=== PATIENT | female | born 1970 | race Hispanic/Latino ===

== ENCOUNTER 2020-10-29 16:24 | Emergency (ER) | payer OTHER ==
[2020-10-29] MEDS ORDERED: LIDOCAINE VISCOUS 2% SOLN 15 ML UDC ONE (18:05)
[2020-10-29] MEDS ORDERED: HYDROCOD 2.5mg-ACETAMIN 108mg/5mL Soln ONE (18:05)
--- NOTE | 2020-10-29 18:06 | ER ---
Nurse's Notes [facility] Name: Myra Craig Age: 49 yrs Sex: Female : 1970 Arrival Date: 10/29/2020 Time: 16:28 Bed 23 Private MD: Diagnosis: Stomatitis and related lesions Presentation: 10/29 16:31 Chief complaint: Sister reports that pt went to see her PCP yesterday for mouth pain sv and dx with thrush, they prescribed her Nystatin, Alendronate, and Amoxicillin. Sister reports she has been having increasing pain and mouth problems. Coronavirus screen: Client denies travel out of the [place] in the last 14 days. At this time, the client does not indicate any symptoms associated with coronavirus-19. Ebola Screen: No symptoms or risks identified at this time. Onset: The symptoms/episode began/occurred 3 day(s) ago. Anaphylaxis evaluation, no signs or symptoms of anaphylaxis were noted. Risk Assessment: Do you want to hurt yourself or someone else? Patient reports no desire to harm self or others. Onset of symptoms was October 26, 2020. 16:31 Method Of Arrival: Ambulatory sv 16:31 Acuity: MER 4 sv 16:34 Initial Sepsis Screen: Does the patient meet any 2 criteria? No. Patient's initial sv sepsis screen is negative. Does the patient have a suspected source of infection? No. Patient's initial sepsis screen is negative. Triage Assessment: 16:31 General: Appears in no apparent distress. uncomfortable, Behavior is cooperative. Pain: sv Complains of pain in mouth. Neuro: Level of Consciousness is awake, alert, obeys commands, Gait is steady. Respiratory: Airway is patent Respiratory effort is even, unlabored. Historical: - Allergies: 16:34 No Known Allergies; sv - PMHx: 16:34 Autism; CML; MR; sv - Immunization history:: Adult Immunizations up to date. - Social history:: Smoking status: Patient denies any tobacco usage or history of. Screenin:17 Abuse screen: Denies threats or abuse. Denies injuries from another. Nutritional hb screening: No deficits noted. Tuberculosis screening: No symptoms or risk factors identified. Fall Risk None identified. Assessment: 17:49 General: Appears in no apparent distress. uncomfortable, Behavior is cooperative, hb anxious. Pain: Pain currently is 6 out of 10 on a pain scale. Neuro: Level of Consciousness is awake, alert, obeys commands. Cardiovascular: Patient's skin is warm and dry. Respiratory: Respiratory effort is even, unlabored, Respiratory pattern is regular, symmetrical. GI: No signs and/or symptoms were reported involving the gastrointestinal system. : No signs and/or symptoms were reported regarding the genitourinary system. EENT: Reports pain since mouth, throat, lips. Derm: Skin is pink, warm \T\ dry. Musculoskeletal: No signs and/or symptoms reported regarding the musculoskeletal system. Vital Signs: 16:34 BP 139 / 78; Pulse 81; Resp 16; Temp 98.1; Pulse Ox 99% ; Weight 74.84 kg; Height 5 ft. sv 4 in. (162.56 cm); 16:34 Body Mass Index 28.32 (74.84 kg, 162.56 cm) sv ED Course: 16:28 Patient arrived in ED. mr 16:33 Triage completed. sv 16:34 Arm band placed on. sv 17:06 Woodrow Reaves PA is PHCP. cp 17:06 Clarke Martin MD is Attending Physician. cp 17:16 Romi Cason, PARDEEP is Primary Nurse. hb 17:50 Patient has correct armband on for positive identification. Bed in low position. Call hb light in reach. 18:25 No provider procedures requiring assistance completed. Patient did not have IV access hb during this emergency room visit. Administered Medications: 17:49 Drug: Lortab Liquid 10 ml Route: PO; hb 17:49 Drug: Viscous Lidocaine Liquid (4 %) 5 ml Route: Mucous Membrane; hb Outcome: 18:06 Discharge ordered by MD. cp 18:25 Discharged to home ambulatory, with family. hb 18:25 Condition: stable 18:25 Discharge instructions given to patient, family, Instructed on discharge instructions, follow up and referral plans. medication usage, Demonstrated understanding of instructions, follow-up care, medications, Prescriptions given X 1. 18:25 Patient left the ED. hb Signatures: Rupinder Cotton RN RN Ade Bowles mr Woodrow Reaves PA PA cp Romi Cason RN RN hb
--- NOTE | 2020-10-29 18:06 | EDPHYS ---
Physician Documentation [facility] Name: Myra Craig Age: 49 yrs Sex: Female : 1970 Arrival Date: 10/29/2020 Time: 16:28 Bed 23 Private MD: ED Physician Clarke Martin HPI: 10/29 17:35 This 49 yrs old Female presents to ER via Ambulatory with complaints of cp Possible Allergic Reaction. 17:35 The patient presents with pain. The problem is located in the lower lip and upper lip cp and mouth. Onset: The symptoms/episode began/occurred 3 day(s) ago. Duration: The symptoms are continuous, worse today. 17:35 Associated signs and symptoms: Pertinent negatives: dysphagia, fever, inability to eat. cp The patient has been recently seen by a physician: the patient's primary care provider, yesterday, with similar presenting complaints, prescribed Amoxicillin antibiotic, liquid nystatin for concern of oral thrush and Alendronate. Historical: - Allergies: 16:34 No Known Allergies; sv - PMHx: 16:34 Autism; CML; MR; sv - Immunization history:: Adult Immunizations up to date. - Social history:: Smoking status: Patient denies any tobacco usage or history of. ROS: 17:40 Constitutional: Positive for poor PO intake, Negative for body aches, chills, fever. cp 17:40 Eyes: Negative for injury, pain, redness, and discharge. cp 17:40 ENT: Positive for pain of lips and oral mucosa, Negative for ear pain, difficulty swallowing, difficulty handling secretions. 17:40 Respiratory: Negative for cough, shortness of breath, wheezing. 17:40 All other systems are negative. Exam: 17:45 Constitutional: The patient appears in no acute distress, alert, awake, non-toxic, well cp developed, well nourished, uncomfortable. 17:45 Head/Face: Normocephalic, atraumatic. cp 17:45 Eyes: Periorbital structures: appear normal, Conjunctiva: normal, no exudate, no injection, Sclera: no appreciated abnormality, Lids and lashes: appear normal, bilaterally. 17:45 ENT: External ear(s): are unremarkable, Ear canal(s): are normal, clear, TM's: dullness, bilaterally, Nose: is normal, Mouth: Lips: dry, cracked, mild swelling, Oral mucosa: moist, noted to have obvious stomatitis, on the upper lip and lower lip, Posterior pharynx: Airway: no evidence of obstruction, patent, Tonsils: no enlargement, no exudate, Uvula: midline, erythema, that is mild, exudate, is not appreciated. 17:45 Neck: ROM/movement: is normal, is supple, without pain, no range of motions limitations, Lymph nodes: no appreciated lymphadenopathy. 17:45 Chest/axilla: Inspection: normal. 17:45 Cardiovascular: Rate: normal. 17:45 Respiratory: the patient does not display signs of respiratory distress, Respirations: normal, no use of accessory muscles. Vital Signs: 16:34 BP 139 / 78; Pulse 81; Resp 16; Temp 98.1; Pulse Ox 99% ; Weight 74.84 kg; Height 5 ft. sv 4 in. (162.56 cm); 16:34 Body Mass Index 28.32 (74.84 kg, 162.56 cm) sv MDM: 17:20 Patient medically screened. cp 17:45 Differential diagnosis: dental caries, gingivitis, aphthous ulcers, gingivostomatitis. cp 18:05 Data reviewed: vital signs, nurses notes. cp 18:05 Counseling: I had a detailed discussion with the patient and/or guardian regarding: the cp historical points, exam findings, and any diagnostic results supporting the discharge/admit diagnosis, to return to the emergency department if symptoms worsen or persist or if there are any questions or concerns that arise at home. Response to treatment: the patient's symptoms have markedly improved after treatment, VSS. Pain markedly improved. Will discharge to home for continued monitoring. Administered Medications: 17:49 Drug: Lortab Liquid 10 ml Route: PO; hb 17:49 Drug: Viscous Lidocaine Liquid (4 %) 5 ml Route: Mucous Membrane; hb Disposition: 10/29/20 18:06 Discharged to Home. Impression: Stomatitis and related lesions. - Condition is Stable. - Discharge Instructions: Stomatitis. - Medication Reconciliation Form, Thank You Letter, Antibiotic Education, Prescription Opioid Use form. - Follow up: Private Physician; When: 2 - 3 days; Reason: Recheck today's complaints. - Problem is new. - Symptoms have improved. Addendum: 10/31/2020 14:54 Co-signature as Attending Physician, Clarke Martin MD I agree with the assessment and k dr plan of care. Signatures: Rupinder Cotton, RN RN Clarke Martin MD MD [facility] Woodrow Reaves PA PA Romi Cason, PARDEEP RN Corrections: (The following items were deleted from the chart) 10/29 18:25 18:06 10/29/2020 18:06 Discharged to Home. Impression: Stomatitis and related lesions. hb Condition is Stable. Prescriptions for clotrimazole 10 mg Mucous Membrane juliette - take 1 tablet by ORAL route 5 times per day for 14 days; 70 tablet, lidocaine HCl 2 % Mucous Membrane solution - take 5 milliliter by ORAL route every 4-6 hours As needed; 1 bottle. and Forms are Medication Reconciliation Form, Thank You Letter, Antibiotic Education, Prescription Opioid Use. Follow up: Private Physician; When: 2 - 3 days; Reason: Recheck today's complaints. Problem is new. Symptoms have improved. cp 10/30 01:21 10/29 17:35 This 49 yrs old Female presents to ER via Ambulatory with cp complaints of Allergic Reaction. cp 10/30 16:57 10/29 17:35 The patient has been recently seen by a physician: the patient's primary cp care provider, yesterday, with similar presenting complaints, prescribed Amoxicillin antibiotic, liquid nystatin for concern of oral thrush and Alendro, cp
[2020-10-29 18:53] VITALS: BP 139/78; TEMP 98.1; O2SAT 99
== END 2020-10-29 18:25 | disposition home or self-care (01) ==
LOC: ER 16:24
DX: K12.1 Other forms of stomatitis (principal); F84.0 Autistic disorder; F79 Unspecified intellectual disabilities; C92.10 Chronic myeloid leukemia, BCR/ABL-positive, not having achieved remission
CPT/HCPCS: 99283